=== PATIENT | male | born 1995 | race Caucasian/White ===

== ENCOUNTER 2017-01-17 21:27 | Emergency (ER) | payer SELFPAY ==
[~2017-01-17] VITALS: Ht 177.8 cm; Wt 72.0 kg
[2017-01-17 21:52] VITALS: BP 128/78
== END 2017-01-17 22:23 | disposition left against medical advice (07) ==
LOC: EMS 21:30
DX: F41.9 Anxiety disorder, unspecified (principal); R06.02 Shortness of breath; M62.838 Other muscle spasm; F17.210 Nicotine dependence, cigarettes, uncomplicated; Z53.21 Procedure and treatment not carried out due to patient leaving prior to being seen by health care provider